=== PATIENT | female | born 1975 | race Caucasian/White ===

== ENCOUNTER 2024-10-26 08:09 | Emergency (ER) | payer MEDICARE, OTHER, SELFPAY ==
[2024-10-26 08:20] VITALS: BP 130/89
[2024-10-26 08:48] VITALS: BP 73/46
[2024-10-26 08:50] VITALS: BP 119/78
[2024-10-26 09:00] VITALS: BP 117/75
[2024-10-26 09:35] LABS: % Basophils 0.5 % (0-2); % Eosinophils 1.7 % (0-6); % Immature Granulocytes 0.3 % (0-0.5); % Lymphocytes 22.1 % (20.5-51.1); % Monocytes 6.6 % (1.7-9.3); % Neutrophils 68.8 % (42.2-75.2); Absolute Eosinophils 0.1 10^3/uL (0-0.7); Absolute Lymphocytes 1.3 10^3/uL (1.2-3.4); Absolute Monocytes 0.4 10^3/uL (0.1-0.6); Hematocrit 34.5 % (37.0-47.0); Hemoglobin 11.6 g/dL (12.0-16.0); Mean Corp Hgb Conc. 33.6 g/dL (33.0-37.0); Mean Corpuscular Hgb 29.6 pg (27.0-31.0); Mean Platelet Volume 9.4 fL (7.4-10.4); Nucleated Red Blood Cells % 0 %; Platelet Count 213 10^3/uL (130-400); Red Blood Cell Count 3.92 10^6/uL (4.20-5.40); Red Cell Dist. Width 13.7 % (11.5-14.5); White Blood Cell Count 5.8 10^3/uL (4.8-10.8)
[2024-10-26 10:00] VITALS: BP 136/84
[2024-10-26 10:19] LABS: ALT (SGPT) 38 U/L (0-35); AST (SGOT) 36 U/L (14-36); Albumin 4.1 g/dl (3.5-5.0); Alkaline Phosphatase 61 U/L (38-126); Blood Urea Nitrogen 9 mg/dl (7-17); Calcium 8.8 mg/dl (8.4-10.2); Carbon Dioxide 26 mmol/L (22-30); Chloride 103 mmol/L (98-107); Glucose 110 mg/dl (70-99); Potassium 3.9 mmol/L (3.5-5.1); Sodium 135 mmol/L (135-145); Total Bilirubin 0.7 mg/dl (0.2-1.3); Total Protein 6.9 g/dl (6.3-8.2); eGFR > 60.00
[2024-10-26 11:00] VITALS: BP 139/91
--- NOTE | 2024-10-26 11:21 | ED.GENMED ---
History of Present Illness
General
Chief Complaint: Swelling
Time Seen by Provider: 10/26/24 08:43
History of Present Illness
History of Present Illness:
49-year-old female with history of breast cancer now in remission presents to the emergency department for evaluation of right leg pain as well as left arm swelling. She states to me 'I felt the blood clot moved from my right leg to my left arm and
go through the heart. She denies any shortness of breath or chest pain at this time but does report dizziness that occurred prior to arrival. No recent fevers or chills.
Past History
Past History
ED Past Medical History: Asthma, Cancer (Breast CA), Hypercholesterolemia and Other (Clot on the tip of her port in the right atrium, Decreased ejection fraction)
ED Past Surgical History: and Other (Left Mastectomy)
Social History
Tobacco: Non-smoker
Alcohol: Occasional
Personal:
Living: with family
Review of Systems
Review of Systems
Allergies reviewed?: Yes
All Other Systems: ROS reviewed and negative except as documented in HPI and ROS
Phy Exam
Physical Exam
Physical Exam:
GEN: Well appearing, NAD, WDWN
HEENT: Oral mucosa moist, no scleral icterus
Cardiac: Regular rate
Lung: No respiratory distress, no tachypnea
MSK: No gross deformity or injuries. No appreciable edema to the right lower extremity or the left upper extremity
Skin: Good color, no pallor or jaundice, no rashes
Neuro: AO x3, moves all extremities freely
Psych: Calm, cooperative
Scores
Heart Failure Risk
Heart Failure Risk Score: Not Applicable
Course
Orders/Labs/Results
Orders:
Orders
10/26/24 08:26
EKG [Electrocardiogram (*1)] Urgent
Reason for Study: Chest Pain
EKG- Treatment ONCE
US Periph Venous LOWER Ext RT Urgent
Comment:
Reason For Exam: swelling
US Periph Venous UPPER Ext LT Urgent
Comment:
Reason For Exam: swelling
10/26/24 09:27
Complete Blood Count/With Diff Urgent
Comprehensive Metabolic Panel Urgent
10/26/24 09:30
Heparin Pf [Heparin Lock Flush] 500 unit IV PER PROTOCOL
Abnormal Lab Results
10/26/24
09:27
RBC 3.92 L 10^6/uL
(4.20-5.40)
Hgb 11.6 L g/dL
(12.0-16.0)
Hct 34.5 L %
(37.0-47.0)
Glucose 110 H mg/dl
(70-99)
ALT 38 H U/L
(0-35)
10/26/24 09:27
10/26/24 09:27
Vital Signs
Initial and Last Documented VS:
Initial Vital Signs
Temp Pulse Resp BP Pulse Ox
98.5 F 69 18 130/89 98
10/26/24 08:20 10/26/24 08:20 10/26/24 08:20 10/26/24 08:20 10/26/24 08:20
Last Documented Vital Signs
Temp Pulse Resp BP Pulse Ox
98.5 F 64 16 139/91 98
10/26/24 08:20 10/26/24 11:30 10/26/24 11:30 10/26/24 11:00 10/26/24 11:15
MDM/Problems Addressed
MDM/Problems Addressed:
Labs and ultrasounds reassuring, unclear etiology to patient's symptoms
*Critical Care Note
Total Time (30-74mins, 75-104mins- exclusive of procedures): Not Applicable
ED Attending Note
-
Portions of this chart may have been created with voice recognition software.� Occasional wrong word or��sound alike� substitutions may have occurred due to the inherent limitations of voice recognition software.
Discharge Plan
Departure
Patient Disposition: Home (Routine Discharge)
Date of Disposition: 10/26/24
Time of Disposition: 11:21
Patient with high blood pressure during this ER visit?: No
Discharge Problem:
Dizziness, Leg pain, right
Instructions: Dizziness
Prescriptions:
No Action
acetaminophen 325 MG tablet
650 mg PO Q4HPRN PRN (Reason: mild pain)
calcium carbonate [Antacid (calcium carbonate)] 1 TABLET tablet,chewable
2 tab PO Q4HPRN PRN (Reason: acid reflux)
fluticasone propionate 1 SPRAY spray,suspension
1 spray intranasal DAILYPRN PRN (Reason: congestion)
escitalopram oxalate 10 MG tablet
10 mg PO DAILY
ipratropium-albuterol 3 ML solution for nebulization
3 ml inhalation R Q4HPRN PRN (Reason: SOB/Wheeze) Qty: 30 0RF
cetirizine 10 MG tablet
10 mg PO DAILY
atorvastatin 10 MG tablet
5 mg PO . 3 TIMES PER WEEK
Referrals:
Mariana Martinez MD [Family Provider] -
Interventions
Interventions:
*Risk Screen - Suicide Last Done: 10/26/24 08:20
*General Assessment Last Done: 10/26/24 08:20
*Neglect/Abuse Screening Last Done: 10/26/24 08:20
ED- Fall Risk Assessment Last Done: 10/26/24 09:14
*ED COVID-19 Vaccine History Last Done: 10/26/24 08:20
*Nursing Disposition Last Done: 10/26/24 11:39
ED- Cardiac Assessment Last Done: 10/26/24 09:14
ED- Pulmonary Assessment Last Done: 10/26/24 09:14
ED-Skin Assessment Last Done: 10/26/24 09:14
Discharge Date and Time
Discharge Date/Time: 10/26/24 11:42
Print Language: PALAUAN
== END 2024-10-26 11:42 | disposition home or self-care (01) ==
LOC: EMR 08:09
PROVIDERS: Physician Assistant; EMERGENCY PHYSICIAN Emergency Medicine; FAMILY PHYSICIAN Student in an Organized Health Care Education/Training Program
DX: R42 Dizziness and giddiness (principal); M79.604 Pain in right leg
CPT/HCPCS: 99285; 96374; 80053; 85025; 93005; 93971

== ENCOUNTER → 2025-04-21 14:10 | Outpatient (REF) | payer MEDICARE, OTHER, SELFPAY ==
[2025-04-21 15:33] LABS: Hematocrit 37.8 % (37.0-47.0); Hemoglobin 12.9 g/dL (12.0-16.0); Mean Corp Hgb Conc. 34.1 g/dL (33.0-37.0); Mean Corpuscular Volume 85.5 fL (81.0-99.0); Nucleated Red Blood Cells % 0 %; Platelet Count 229 10^3/uL (130-400); Red Cell Dist. Width 13.2 % (11.5-14.5)
[2025-04-21 16:09] LABS: ALT (SGPT) 55 U/L (0-35); AST (SGOT) 41 U/L (14-36); Albumin 4.6 g/dl (3.5-5.0); Alkaline Phosphatase 68 U/L (38-126); Blood Urea Nitrogen 8 mg/dl (7-17); Calcium 9.9 mg/dl (8.4-10.2); Carbon Dioxide 29 mmol/L (22-30); Chloride 108 mmol/L (98-107); Glucose 86 mg/dl (70-99); HDL Cholesterol 49 mg/dl; LDL Cholesterol, Calculated 63 mg/dl; Potassium 4.3 mmol/L (3.5-5.1); Sodium 143 mmol/L (135-145); Total Protein 7.6 g/dl (6.3-8.2); Very Low Density Lipoprotein 54 mg/dl (0-30); eGFR > 60.00
[2025-04-22 07:32] LABS: Glycohemoglobin (HgbA1c) 5.8 % (4.0-5.6)
== END ==
LOC: REG 14:10
PROVIDERS: ATTENDING PHYSICIAN Student in an Organized Health Care Education/Training Program
DX: Z85.3 Personal history of malignant neoplasm of breast (principal); E03.9 Hypothyroidism, unspecified; E78.2 Mixed hyperlipidemia; J45.30 Mild persistent asthma, uncomplicated; R73.03 Prediabetes
CPT/HCPCS: 36415; 80053; 80061; 83036; 84443; 85025